=== PATIENT | male | born 1965 | race Two or more races ===

== ENCOUNTER 2018-02-13 06:10 | Emergency (ER) | payer OTHER ==
[~2018-02-13] VITALS: Ht 175.3 cm; Wt 84.8 kg
[~2018-02-13 06:10] MED LIST: CEFADROXIL500 MG PO; NABUMETONE500 MG PO; TRIPLE ANTIBIOT15 GM TP
[2018-02-13] MEDS ORDERED: METROPOLOL 50MG (06:24)
[2018-02-13] MEDS ORDERED: CEFUROXIME500 MG PO ×2 (07:21→07:24)
[2018-02-13] MEDS ORDERED: VISTARIL50 MG PO ×2 (07:21→07:24)
== END 2018-02-13 07:31 | disposition home or self-care (01) ==
LOC: ER 06:10
DX: H93.11 Tinnitus, right ear (principal)